=== PATIENT | female | born 1985 ===

== ENCOUNTER → 2022-05-05 10:00 | Outpatient (BNVA) | payer OTHER, SELFPAY | PROVIDERS: Visit Provider Physician Assistant Medical | DX: S46.812A Strain of other muscles, fascia and tendons at shoulder and upper arm level, left arm, initial encounter (principal); Y04.2XXA Assault by strike against or bumped into by another person, initial encounter; R07.81 Pleurodynia | CPT/HCPCS: 99203 ==

== ENCOUNTER → 2022-05-07 11:49 | Outpatient (BNVA) | payer OTHER, SELFPAY | PROVIDERS: Visit Provider Physician Assistant | DX: S46.812A Strain of other muscles, fascia and tendons at shoulder and upper arm level, left arm, initial encounter (principal); Y04.2XXA Assault by strike against or bumped into by another person, initial encounter; R07.81 Pleurodynia | CPT/HCPCS: 99213 ==